=== PATIENT | male | born 1960 | race Caucasian/White ===

== ENCOUNTER 2021-09-15 11:12 | Emergency (ER) | payer BC ==
[~2021-09-15] VITALS: Ht 182.9 cm; Wt 95.0 kg
[2021-09-15 11:23] VITALS: BP 136/83
[2021-09-15 11:30] VITALS: BP 128/79
[2021-09-15 14:39] VITALS: BP 128/87
== END 2021-09-15 14:41 | disposition home or self-care (01) | DRG 563 ==
LOC: ED 11:12
DX: S43.401A Unspecified sprain of right shoulder joint, initial encounter (principal); S50.02XA Contusion of left elbow, initial encounter; S50.01XA Contusion of right elbow, initial encounter; S50.312A Abrasion of left elbow, initial encounter; S50.311A Abrasion of right elbow, initial encounter; S80.02XA Contusion of left knee, initial encounter; S80.01XA Contusion of right knee, initial encounter; S20.212A Contusion of left front wall of thorax, initial encounter; I10 Essential (primary) hypertension; F32.A Depression, unspecified; V28.4XXA Motorcycle driver injured in noncollision transport accident in traffic accident, initial encounter; Y92.410 Unspecified street and highway as the place of occurrence of the external cause

== ENCOUNTER 2021-09-27 13:52 | Emergency (ER) | payer BC ==
[~2021-09-27] VITALS: Ht 182.9 cm; Wt 85.0 kg
[2021-09-27 14:10] VITALS: BP 126/85
[2021-09-27 14:30] VITALS: BP 137/84
[2021-09-27 14:39] LABS: URINE BILIRUBIN - DIPSTICK NEGATIVE (NEGATIVE); URINE BLOOD DIPSTICK TRACE-INTACT (NEGATIVE); URINE COLOR YELLOW; URINE GLUCOSE - DIPSTICK NEGATIVE (NEGATIVE); URINE KETONE NEGATIVE (NEGATIVE); URINE LEUK ESTERASE NEGATIVE (NEGATIVE); URINE PROTEIN - DIPSTICK 30 mg/dL (NEG-TRACE); URINE SPECIFIC GRAVITY >=1.030; URINE UROBILINOGEN - DIPSTICK 0.2 E.U./dL (0.2)
[2021-09-27 14:41] LABS: URINE NITRITE - DIPSTICK NEGATIVE (Negative)
[2021-09-27 14:46] LABS: HEMATOCRIT 46.7 % (39.0-50.0); HEMOGLOBIN 15.4 g/dl (14.0-18.0); IMMATURE GRANULOCYTES 0.4 % (0.0-5.0); MEAN CELL VOLUME 93.6 fL CALC (80.0-100.0); MEAN CORPUSCULAR HGB 30.9 pG CALC (26.0-32.0); NEUT# 3.15 thou/uL (1.82-7.42); RED BLOOD COUNT 4.99 mill/uL (4.70-6.10); RED CELL DISTRI WIDTH 12.9 % (11.5-15.5)
[2021-09-27 14:49] LABS: URINE WBC 0-2 WBC/hpf (0-5)
[2021-09-27 15:05] LABS: ALBUMIN 4.8 g/dL (3.2-5.0); ALKALINE PHOSPHATASE 54 u/l (38-126); ANION GAP 16 (6-22 (CALC)); BILIRUBIN, TOTAL 0.5 mg/dL (0.0-1.4); BUN 30 mg/dL (9-20); BUN/CREATININE RATIO 28 (12-20 (CALC)); CARBON DIOXIDE 22 mmol/l (22-30); CHLORIDE 109 mmol/l (95-108); CREATININE 1.1 mg/dL (0.7-1.3); GFR > 60 ML/MIN (>=60 (CALC)); GFR FOR AFR.AMER. > 60 ML/MIN (>=60 (CALC)); LIPASE 139 u/l (23-300); POTASSIUM 4.6 mmol/l (3.5-5.1); SGOT/AST 31 u/l (17-59); SODIUM 143 mmol/l (137-146); TOTAL PROTEIN 7.9 g/dL (6.3-8.2)
[2021-09-27 17:53] VITALS: BP 137/84
[2021-09-27] MEDS ORDERED: LORTAB 1010 MG PO ×2 (17:58→18:10)
== END 2021-09-27 18:17 | disposition home or self-care (01) | DRG 694 ==
LOC: ED 13:52
PROVIDERS: Family Medicine
DX: N20.1 Calculus of ureter (principal); N43.3 Hydrocele, unspecified; I10 Essential (primary) hypertension; F32.A Depression, unspecified

== ENCOUNTER 2021-11-09 07:04 | Day surgery (SDC) | payer BC ==
[~2021-11-09] VITALS: Ht 182.9 cm; Wt 95.7 kg
[~2021-11-09 07:04] MED LIST: AMLODIPINE BESYL5 MG PO; APRESOLINE50 MG PO; CLONAZEPAM1 MG PO; COZAAR100 MG PO; ELIQUIS5 MG PO; HYDROCO/APAP1 T10 PO; LORTAB 1010 MG PO; PROPAFENONE150 M1 PO; SERTRALINE50 MG PO; TAMSULOSIN HCL0.4 MG PO; TRANDATE300 MG PO
[2021-11-09] MEDS ORDERED: ELETRIPTAN HYDR40 MG PO (07:29)
[2021-11-09] MEDS ORDERED: VITAMIN D PO (07:30)
[2021-11-09] MEDS ORDERED: MULTIVITAMIN1 TA1 PO (07:31)
[2021-11-09 10:11] VITALS: BP 120/78
== END 2021-11-09 10:00 | disposition home or self-care (01) | DRG 670 ==
LOC: ORM 07:04
PROVIDERS: ATTEND Urology
PROC: 0TBB8ZX Excision of Bladder, Via Natural or Artificial Opening Endoscopic, Diagnostic (ICD-10-PCS; principal; 2021-11-09)
DX: N30.21 Other chronic cystitis with hematuria (principal); N42.89 Other specified disorders of prostate; N40.1 Benign prostatic hyperplasia with lower urinary tract symptoms; N13.8 Other obstructive and reflux uropathy; I48.91 Unspecified atrial fibrillation; I10 Essential (primary) hypertension; Z79.01 Long term (current) use of anticoagulants; Z87.442 Personal history of urinary calculi
CPT/HCPCS: J1956

== ENCOUNTER 2022-01-12 12:55 | Emergency (ER) | payer BC ==
[~2022-01-12] VITALS: Ht 182.9 cm; Wt 84.0 kg
[2022-01-12] VITALS (12 sets, daily range): BP systolic 111–133; BP diastolic 70–82
[~2022-01-12 12:55] MED LIST changes: +ELETRIPTAN HYDR40 MG PO; +MULTIVITAMIN1 TA1 PO; +VITAMIN D PO
[2022-01-12] MEDS ORDERED: PREDNISONE20 MG PO (15:45)
[2022-01-12] MEDS ORDERED: VISTARIL25 MG PO (15:45)
== END 2022-01-12 15:55 | disposition home or self-care (01) | DRG 918 ==
LOC: ED 12:55
DX: T63.461A Toxic effect of venom of wasps, accidental (unintentional), initial encounter (principal); L50.0 Allergic urticaria; R06.2 Wheezing; I10 Essential (primary) hypertension; F32.A Depression, unspecified